=== PATIENT | male | born 1985 | race Caucasian/White ===

== ENCOUNTER 2023-05-29 10:33 | Emergency (ER) | payer MEDICAID, OTHER ==
[2023-05-29] MEDS ORDERED: Lidocaine 1% 10 ML MDV INJECT ONE (10:37)
== END 2023-05-29 10:57 | disposition home or self-care (01) ==
LOC: VM.ED 10:33
DX: S01.81XA Laceration without foreign body of other part of head, initial encounter (principal); W01.190A Fall on same level from slipping, tripping and stumbling with subsequent striking against furniture, initial encounter
CPT/HCPCS: 12002; 99282; J3490